=== PATIENT | female | born 1950 | race Caucasian/White ===

== ENCOUNTER 2020-06-07 20:34 | Emergency (ER) | payer MEDICARE ==
[~2020-06-07] VITALS: Ht 162.6 cm; Wt 56.2 kg
--- NOTE | 2020-06-07 20:40 | NUR ---
PATIENT CAME TO ER BED 3 BIBRA FROM HOME C/O RIGHT SHOULDER PAIN. PATIENT HAS SIMILAR SENSATION. RADIAL PULSES EQUAL AND STRONG BILATERALLY. PATIENT IS AAOX4. NO SOB. BREATHING EVENLY AND UNLABORED ON ROOM AIR. LIMITED RANGE OF MOTION DUE TO PAIN ON THE RIGHT SHOULDER. PATIENT IS AMBULATORY WITH A STEADY GAIT.
--- NOTE | 2020-06-07 20:49 | NUR ---
[facility] AT BEDSIDE.
[2020-06-07] MEDS ORDERED: ACETAMINOPHEN ES 500 MG TABLET PO ONE (21:00)
[2020-06-07] MEDS ORDERED: ACETAMINOPHEN ES 500 MG TABLET ONE (21:02)
--- NOTE | 2020-06-07 22:11 | NUR ---
Patient discharged to home in stable condition. Written and verbal after care instructions given. Patient verbalizes understanding of instruction.
--- NOTE | 2020-06-07 22:11 | NUR ---
RIGHT ARM SLING
--- NOTE | 2020-06-07 22:14 | NUR ---
CALLED ADAL RAMIREZ TO [employer] PATIENT. Addendum: 06/07/20 at 2216 by JOY [id number] ETA
--- NOTE | 2020-06-07 22:29 | NUR ---
HERE TO PICK PATIENT UP.
[2020-06-07 22:51] VITALS: BP 133/76
== END 2020-06-07 23:17 | disposition home or self-care (01) ==
LOC: ER 20:37
DX: S42.254A Nondisplaced fracture of greater tuberosity of right humerus, initial encounter for closed fracture (principal); G20 Parkinson's disease; W18.39XA Other fall on same level, initial encounter; Y93.89 Activity, other specified; Y92.89 Other specified places as the place of occurrence of the external cause; Y99.8 Other external cause status
CPT/HCPCS: 73030-TC